=== PATIENT | male | born 1960 | race Hispanic/Latino ===

== ENCOUNTER 2020-04-14 06:04 | Day surgery (SDC) | payer BC ==
[2020-04-13 11:42] VITALS: BP 134/91
[2020-04-14] VITALS (17 sets, daily range): BP systolic 93–133; BP diastolic 56–77
[~2020-04-14] VITALS: Ht 162.6 cm; Wt 87.5 kg
[2020-04-14] MEDS: CEFTRIAXONE SODIUM 1 GM IVP SCH ×2 (06:00→08:20)
[~2020-04-14 06:04] MED LIST: ASPI-1012 PO; ATOR10TA69 PO; LEVO25TA54 PO; METO-409 PO; MONT10TA26 PO; OMEP-272 PO; QUET300T2 PO; TADA5TAB13 PO
[2020-04-14] MEDS ORDERED: LACTATED RINGERS 1000ML 1,000 ML IV ONE (07:20)
[2020-04-14] MEDS ORDERED: IOHEXOL-350 50ML VIAL IV ONE (07:44)
[2020-04-14] MEDS ORDERED: SCOPOLAMINE HYDROBROMIDE 1 EACH ADH..PATCH TD ONE ×2 (07:59→08:06)
[2020-04-14] MEDS ORDERED: GLYCOPYRROLATE 1 MG/5 ML SYRINGE ONE (08:09)
[2020-04-14] MEDS ORDERED: MIDAZOLAM HCL 1 MG/ML 2ML VIAL ONE (08:09)
[2020-04-14] MEDS ORDERED: NEOSTIGMINE 5MG/5ML SYR IV ONE (08:09)
[2020-04-14] MEDS ORDERED: DEXAMETHASONE SOD PHOSPHATE 10MG/ML 1ML VIAL ONE (08:09)
[2020-04-14] MEDS ORDERED: SUCCINYLCHOLINE 200MG/10ML SYR ONE ×2 (08:09→08:10)
[2020-04-14] MEDS ORDERED: LIDOCAINE PF 2% 5ML ABBOJECT ONE (08:09)
[2020-04-14] MEDS ORDERED: ROCURONIUM 10MG/1ML SYR 10 MG/ML ML ONE (08:09)
[2020-04-14] MEDS ORDERED: ONDANSETRON HCL 4 MG/2 ML VIAL ONE (08:09)
[2020-04-14] MEDS ORDERED: PROPOFOL 10 MG/ML 20ML VIAL IV ONE (08:10)
[2020-04-14] MEDS ORDERED: FENTANYL CITRATE PF 50 MCG/1 ML 2ML VIAL ONE (08:10)
[2020-04-14] MEDS ORDERED: SODIUM CHLORIDE 0.9% 10 ML VIAL ONE (08:34)
[2020-04-14] MEDS ORDERED: PHENYLEPHRINE HCL 10 MG/ML 1ML VIAL IV ONE (08:34)
[2020-04-14] MEDS ORDERED: PHENAZOPYRIDINE HCL 200 MG TABLET ONE ×2 (10:33→10:35)
--- NOTE | 2020-04-14 10:58 | NUR ---
PT YOUNG CONVERTED TO LEG BAG. YOUNG CARE DEMO GIVEN. PT GIVEN BEDSIDE DRAINAGE BAG TO TAKE HOME. PT DROPPED HIS PYRIDIUM ON FLOOR . I HAD TO GET ANOTHER PYRIDIUM 200MG PO WHICH HE TOOK. PT IS STABLE AND AWAKE. 300ML PINK TINGED URINE EMPTIED FROM YOUNG BAG.
--- NOTE | 2020-04-14 11:15 | NUR ---
PT GIVEN PRINTED AND VERBAL DISCHARGE INSTRUCTIONS. VERBALIZES UNDERSTANDING. NO ACUTE DISTRESS NOTED URINE TO LEG BAG IS NOW CLEAR YELLOW. IV WAS REMOVED AND PT ALLOWED TO GET DRESSED.
--- NOTE | 2020-04-14 11:20 | NUR ---
PT HAS SOME MILD OOZING OF BLOOD AROUND MEATUS. DR LAM WAS MADE AWARE. NO NEW ORDERS. PROCEED WITH DISCHARGE. AREA CLEANED WITH GAUZE. YOUNG CARE GIVEN. PT DISCHARGED HOME
== END 2020-04-14 11:20 | disposition home or self-care (01) ==
LOC: DAH 06:04
PROVIDERS: ATTEND Urology
DX: N32.0 Bladder-neck obstruction (principal); R31.0 Gross hematuria; K21.9 Gastro-esophageal reflux disease without esophagitis; E03.9 Hypothyroidism, unspecified; I10 Essential (primary) hypertension; F41.9 Anxiety disorder, unspecified; F32.9 Major depressive disorder, single episode, unspecified; Z79.899 Other long term (current) drug therapy; Z20.828 Contact with and (suspected) exposure to other viral communicable diseases
CPT/HCPCS: 52640; 74420; A4215; A4221; A4222; A4223; A4314; A4354; A4358; A4510; A4600; A4663; C1758; C1769; C9803; J0330 ×2; J0696; J1100; J2001; J2250; J2370; J2405; J2704; J2710; J3010; J3490; J7120 ×2; Q9967; U0003